=== PATIENT | male | born 1995 | race Two or more races ===

== ENCOUNTER 2017-09-16 19:06 | Emergency (ER) | payer OTHER ==
[~2017-09-16] VITALS: Ht 188 cm; Wt 113.4 kg
[2017-09-16 19:42] VITALS: BP 130/75
[2017-09-16] MEDS ORDERED: BACITRACIN TOP OINT 1 UD PKG TOP ONE (23:30)
== END 2017-09-17 00:36 | disposition home or self-care (01) ==
LOC: ER 19:06
DX: S61.210A Laceration without foreign body of right index finger without damage to nail, initial encounter (principal); W26.0XXA Contact with knife, initial encounter; Y93.89 Activity, other specified; Y92.89 Other specified places as the place of occurrence of the external cause; Y99.8 Other external cause status